=== PATIENT | male | born 1985 | race Caucasian/White ===

== ENCOUNTER 2017-06-06 21:52 | Inpatient (IN) | payer OTHER ==
[2017-06-06] MEDS ORDERED: HYDROmorphone 1 MG/ML Syringe IVPUSH ONE (22:24)
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
[2017-06-07] MEDS ORDERED: HYDROmorphone 0.5 MG/0.5 ML Syringe IVPUSH PRN (00:35)
[2017-06-07] MEDS: Acetaminophen/HYDROcodone 325-5 MG Tab PO PRN ×4 (00:46→13:47)
[2017-06-07] MEDS: Sodium Chloride 0.9% 1,000 ML IV SCH ×3 (00:46→14:43)
[2017-06-07] MEDS: Carvedilol 12.5 MG Tab PO SCH ×2 (00:47→09:20)
[2017-06-07] MEDS: lamoTRIgine 100 MG Tab PO SCH ×3 (00:47→20:42)
[2017-06-07] MEDS ORDERED: ceFAZolin 2 GM in Premix Bag 1 BAG IV SCH (01:00)
[2017-06-07] MEDS: HYDROmorphone 1 MG/ML Syringe IVPUSH PRN ×7 (02:28→13:14)
[2017-06-07] MEDS ORDERED: ceFAZolin 2 GM in Sodium Chloride 0.9% 50 ML IV SCH (09:00)
--- NOTE | 2017-06-07 09:09 | CR ---
Tibia Fibula Rt INDICATION: injury COMPARISON: None FINDINGS: 5 views. There is a vertical fracture of the lateral tibial plateau with only minimal d isplacement. Comminuted fracture distal tibial shaft with anterolateral angulation and mild displace ment of the distal fracture fragment. Segmental comminuted fracture of the mid and distal fibula wit h posterior displacement and lateral angulation of fracture fragments. Fixation hardware distal fibu la. No acute fracture at this site and fixation hardware appears intact. IMPRESSION: Multiple fractures tibia and fibula.
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
[2017-06-07] MEDS ORDERED: fentaNYL 100 MCG/2 ML SDV ONE (15:37)
[2017-06-07] MEDS ORDERED: Propofol 200 MG/20 ML SDV ONE ×2 (15:37→16:41)
[2017-06-07] MEDS ORDERED: Midazolam 1 MG/ML 2 ML SDV ONE (15:37)
[2017-06-07] MEDS: ceFAZolin 2 GM in Premix Bag 1 BAG IV ONE ×2 (15:51→16:43)
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
[2017-06-07] MEDS ORDERED: Midazolam 1 MG/ML 5 ML SDV ONE (16:01)
[2017-06-07] MEDS ORDERED: Povidone-Iodine 10% Soln 118.25 ML Bottle ONE (16:26)
[2017-06-07] MEDS ORDERED: Lactated Ringers 1,000 ML ONE (17:01)
[2017-06-07] MEDS ORDERED: Magnesium Hydroxide 400 MG/5 ML Susp 30 ML Cup PO PRN (18:08)
[2017-06-07] MEDS ORDERED: Bisacodyl 5 MG Tab PO PRN (18:08)
[2017-06-07] MEDS ORDERED: Aluminum Hydroxide/Magnesium Hydroxide/Simethicone Susp 30 ML Cup PO PRN (18:08)
[2017-06-07] MEDS ORDERED: Morphine 2 MG/ML Syringe IVPUSH PRN (18:08)
[2017-06-07] MEDS ORDERED: Sennosides 8.6 MG Tab PO PRN (18:08)
[2017-06-07] MEDS ORDERED: Naloxone 0.4 MG/ML SDV IVPUSH PRN (18:08)
[2017-06-07] MEDS ORDERED: diphenhydrAMINE 50 MG/ML SDV IVPUSH PRN (18:08)
[2017-06-07] MEDS ORDERED: Ondansetron 4 MG/2 ML SDV IVPUSH PRN (18:08)
[2017-06-07] MEDS ORDERED: Zolpidem 5 MG Tab PO PRN (18:08)
[2017-06-07] MEDS ORDERED: HYDROmorphone 1 MG/ML Syringe IVPUSH PRN (18:08)
[2017-06-07] MEDS ORDERED: hydrOXYzine HCl 100 MG/2 ML SDV IM PRN (18:13)
[2017-06-07] MEDS ORDERED: Lactated Ringers 1,000 ML IV SCH (18:15)
[2017-06-07] MEDS: Ketorolac 30 MG/ML SDV IVPUSH SCH (19:01)
[2017-06-07] MEDS: Aspirin 325 MG Tab.EC PO SCH (20:44)
[2017-06-07] MEDS ORDERED: Carvedilol 12.5 MG Tab PO SCH (21:00)
[2017-06-08] MEDS ORDERED: ceFAZolin 2 GM in Premix Bag 1 BAG IV SCH ×2
[2017-06-08] MEDS: Acetaminophen/HYDROcodone 325-5 MG Tab PO PRN ×2 (01:44→07:34)
[2017-06-08] MEDS: Ketorolac 30 MG/ML SDV IVPUSH SCH ×3 (02:00→18:09)
[2017-06-08] MEDS: Carvedilol 12.5 MG Tab PO SCH ×2 (07:39→17:11)
[2017-06-08] MEDS: lamoTRIgine 100 MG Tab PO SCH ×3 (07:39→22:25)
[2017-06-08] MEDS: ceFAZolin 2 GM in Sodium Chloride 0.9% 50 ML IV SCH ×2 (07:48→15:50)
[2017-06-08] MEDS ORDERED: ceFAZolin 2 GM in Sodium Chloride 0.9% 50 ML IV SCH (08:00)
[2017-06-08] MEDS: Docusate Sodium 100 MG Cap PO PRN ×2 (09:09→22:25)
[2017-06-08] MEDS: Aspirin 325 MG Tab.EC PO SCH ×2 (09:09→22:25)
[2017-06-08] MEDS: traMADol 50 MG Tab PO PRN ×2 (09:09→17:11)
[2017-06-08] MEDS: Sodium Chloride 0.9% 10 ML Syringe FLUSH SCH (09:10)
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
[2017-06-08] MEDS: Acetaminophen/oxyCODONE 325-10 MG Tab PO PRN ×3 (12:00→20:15)
[2017-06-09] MEDS: Acetaminophen/oxyCODONE 325-10 MG Tab PO PRN ×3 (00:21→13:41)
[2017-06-09] MEDS: Ketorolac 30 MG/ML SDV IVPUSH SCH ×2 (03:00→10:20)
[2017-06-09] MEDS: Aspirin 325 MG Tab.EC PO SCH (08:50)
[2017-06-09] MEDS: Carvedilol 12.5 MG Tab PO SCH (08:50)
[2017-06-09] MEDS: lamoTRIgine 100 MG Tab PO SCH (08:51)
[2017-06-09] MEDS: Sodium Chloride 0.9% 10 ML Syringe FLUSH SCH (10:20)
[2017-06-09 11:39] VITALS: BP 116/58
--- NOTE | 2017-06-09 12:19 | PCM.PN ---
- General Info Date of Service: 06/08/17 Functional Status: Reports: Pain Controlled, Tolerating Diet, Ambulating, Urinating - Patient Data Vitals - Most Recent: Last Vital Signs Temp 36.7 C 06/09/17 11:36 Pulse 67 06/09/17 11:36 Resp 16 06/09/17 11:36 BP 116/58 L 06/09/17 11:36 Pulse Ox 95 06/09/17 11:36 Weight - Most Recent: 281 lb 4.816 oz I&O - Last 24 Hours: Intake & Output 06/08/17 06/09/17 06/09/17 22:59 06:59 14:59 Intake Total 1050 600 Output Total 600 Balance 450 600 Lab Results Last 24 Hours: Laboratory Results - last 24 hr 06/09/17 06/09/17 Range/Units 05:00 05:00 WBC 7.0 (4.5-11.0) K/uL RBC 4.09 L (4.30-5.90) M/uL Hgb 11.7 L (12.0-15.0) g/dL Hct 34.9 L (40.0-54.0) % MCV 85 (80-98) fL MCH 29 (27-31) pg MCHC 34 (32-36) % Plt Count 213 (150-400) K/uL Neut % (Auto) 58 (36-66) % Lymph % (Auto) 26 (24-44) % [place] % (Auto) 13 H (2-6) % Eos % (Auto) 3 (2-4) % Baso % (Auto) 1 (0-1) % Sodium 139 L (140-148) mmol/L Potassium 3.9 (3.6-5.2) mmol/L Chloride 105 (100-108) mmol/L Carbon Dioxide 30 (21-32) mmol/L Anion Gap 7.9 (5.0-14.0) mmol/L BUN 8 (7-18) mg/dL Creatinine 1.0 (0.8-1.3) mg/dL Est Cr Clr Drug Dosing 124.40 mL/min Estimated GFR (MDRD) > 60 (>60) Glucose 111 H (74-106) mg/dL Calcium 8.3 L (8.5-10.1) mg/dL Total Bilirubin 0.3 (0.2-1.0) mg/dL AST 35 (15-37) U/L ALT 27 (12-78) U/L Alkaline Phosphatase 68 (46-116) U/L Total Protein 5.9 L (6.4-8.2) g/dL Albumin 2.8 L (3.4-5.0) g/dL Globulin 3.1 (2.3-3.5) g/dL Albumin/Globulin Ratio 0.9 L (1.2-2.2) Med Orders - Current: Current Medications Al Hydroxide/Mg Hydroxide (Mag-Al Plus) 30 ml PO Q4H PRN PRN Reason: Constipation Aspirin (Ecotrin) 325 mg PO BID [facility] Last Admin: 06/09/17 08:50 Dose: 325 mg Bisacodyl (Dulcolax) 10 mg PO DAILY PRN PRN Reason: Constipation [facility] Last Admin: 06/09/17 08:50 Dose: 12.5 mg Diazepam (Valium) 5 mg IVPUSH Q6H PRN PRN Reason: Spasms Last Admin: 06/08/17 13:50 Dose: 5 mg Diphenhydramine HCl (Benadryl) 25 mg IVPUSH Q4H PRN PRN Reason: Itching Docusate Sodium (Colace) 100 mg PO BID PRN PRN Reason: Constipation Last Admin: 06/08/17 22:25 Dose: 100 mg Hydromorphone HCl (Dilaudid) 1 mg IVPUSH Q2H PRN PRN Reason: Pain Hydroxyzine HCl (Vistaril) 100 mg IM Q6H PRN PRN Reason: Pain Last Admin: 06/07/17 20:34 Dose: 100 mg Ketorolac Tromethamine (Toradol) 30 mg IVPUSH Q8H [facility] Stop: 06/12/17 18:01 Last Admin: 06/09/17 10:20 Dose: 30 mg Lamotrigine (Lamotrigine) 100 mg PO BID [facility] Last Admin: 06/09/17 08:51 Dose: 100 mg Magnesium Hydroxide (Milk Of Magnesia) 30 ml PO BID PRN PRN Reason: Constipation Morphine Sulfate (Morphine) 2 mg IVPUSH Q2H PRN PRN Reason: Pain Ondansetron HCl (Zofran) 8 mg IVPUSH Q4H PRN PRN Reason: Nausea/Vomiting Oxycodone/Acetaminophen (Percocet 325-10 Mg) 1 tab PO Q4H PRN PRN Reason: Pain Last Admin: 06/09/17 04:39 Dose: 1 tab Senna (Senna) 8.6 mg PO BID PRN PRN Reason: Constipation Sodium Chloride (Saline Flush) 10 ml FLUSH DAILY [facility] Last Admin: 06/09/17 10:20 Dose: 10 ml Tramadol HCl (Ultram) 100 mg PO Q6H PRN PRN Reason: Pain Last Admin: 06/08/17 17:11 Dose: 100 mg Zolpidem Tartrate (Ambien) 5 mg PO BEDTIME PRN PRN Reason: Sleep Discontinued Medications Hydrocodone Bitart/Acetaminophen ([place] 325-5 Mg) 1 - 2 tab PO Q4H PRN PRN Reason: Pain Last Admin: 06/08/17 07:34 Dose: 2 tab Carvedilol (Coreg) 12.5 mg PO BID [facility] Last Admin: 06/07/17 09:20 Dose: 12.5 mg Carvedilol (Coreg) 12.5 mg PO BID [facility] Last Admin: 06/07/17 20:41 Dose: 12.5 mg Fentanyl (Sublimaze) Confirm Administered Dose 100 mcg .ROUTE .STK-MED ONE Stop: 06/07/17 15:38 Hydromorphone HCl (Dilaudid) 1 mg IVPUSH ONETIME ONE Stop: 06/06/17 22:25 Last Admin: 06/06/17 22:27 Dose: 1 mg Hydromorphone HCl (Dilaudid) 0.5 mg IVPUSH Q2H PRN PRN Reason: Pain Last Admin: 06/07/17 00:46 Dose: 0.5 mg Hydromorphone HCl (Dilaudid) 1 mg IVPUSH Q2H PRN PRN Reason: Pain Last Admin: 06/07/17 09:16 Dose: 1 mg Hydromorphone HCl (Dilaudid) 1 mg IVPUSH Q1H PRN PRN Reason: Pain Last Admin: 06/07/17 13:14 Dose: 1 mg Cefazolin Sodium/Dextrose 2 gm (/ Premix) 50 mls @ 100 mls/hr IV Q8H [facility] Last Admin: 06/07/17 01:33 Dose: 100 mls/hr Sodium Chloride (Normal Saline) 1,000 mls @ 150 mls/hr IV ASDIRECTED [facility] Last Admin: 06/07/17 14:43 Dose: 150 mls/hr Cefazolin Sodium 2 gm/ Sodium (Chloride) 50 mls @ 100 mls/hr IV Q8H [facility] Cefazolin Sodium/Dextrose 2 gm (/ Premix) 50 mls @ 100 mls/hr IV ONETIME ONE Stop: 06/07/17 11:29 Last Admin: 06/07/17 16:43 Dose: 100 mls/hr Lactated Ringer's (Ringers, Lactated) Confirm Administered Dose 1,000 mls @ as directed .ROUTE .STK-MED ONE Stop: 06/07/17 17:02 Lactated Ringer's (Ringers, Lactated) 1,000 mls @ 100 mls/hr IV ASDIRECTED [facility] Last Admin: 06/08/17 04:11 Dose: 100 mls/hr Cefazolin Sodium/Dextrose 2 gm (/ Premix) 50 mls @ 100 mls/hr IV Q8H [facility] Stop: 06/08/17 16:29 Last Admin: 06/08/17 00:36 Dose: 100 mls/hr Cefazolin Sodium 2 gm/ Sodium (Chloride) 50 mls @ 100 mls/hr IV Q8H [facility] Stop: 06/08/17 16:29 Cefazolin Sodium 2 gm/ Sodium (Chloride) 50 mls @ 100 mls/hr IV Q8H [facility] Stop: 06/08/17 16:29 Last Admin: 06/08/17 15:50 Dose: 100 mls/hr Lamotrigine (Lamotrigine) 100 mg PO BID [facility] Last Admin: 06/07/17 09:20 Dose: 100 mg Midazolam HCl (Versed 1 Mg/Ml) Confirm Administered Dose 2 mg .ROUTE .STK-MED ONE Stop: 06/07/17 15:38 Midazolam HCl (Versed 1 Mg/Ml) Confirm Administered Dose 5 mg .ROUTE .STK-MED ONE Stop: 06/07/17 16:02 Naloxone HCl (Narcan) 0.1 mg IVPUSH ONETIME PRN PRN Reason: Oversedation Stop: 06/07/17 18:09 Povidone Iodine (Betadine 10% Soln) Confirm Administered Dose 1 ml .ROUTE .STK- MED ONE Stop: 06/07/17 16:27 Last Admin: 06/07/17 16:32 Dose: 1 ml Propofol (Diprivan 20 Ml) Confirm Administered Dose 200 mg .ROUTE .STK-MED ONE Stop: 06/07/17 15:38 Propofol (Diprivan 20 Ml) Confirm Administered Dose 200 mg .ROUTE .STK-MED ONE Stop: 06/07/17 16:42 - Exam General: Alert, Oriented Extremities: Normal Inspection, Normal Capillary Refill, Pedal Edema, Leg Pain, Limited Range of Motion Skin: Warm, Dry, Intact Wound/Incisions: Healing Well, Dressing Dry and Intact Neurological: No New Focal Deficit Psy/Mental Status: Alert, Normal Affect - Problem List Review Problem List Initiated/Reviewed/Updated: Yes - My Orders Last 24 Hours: My Active Orders 06/09/17 08:53 Ready for Discharge [RC] PER UNIT ROUTINE 06/10/17 05:15 CBC WITH AUTO DIFF [HEME] DAILY COMPREHENSIVE METABOLIC PN,CMP [CHEM] DAILY 06/11/17 05:15 CBC WITH AUTO DIFF [HEME] DAILY COMPREHENSIVE METABOLIC PN,CMP [CHEM] DAILY - Plan Plan:: At this time the patient is doing well. He is wearing his splint and keeping his leg elevated. He will continue to wear the brace. I did advise him that he can go home tomorrow. We'll continue with elevation of that leg.
--- NOTE | 2017-06-09 12:22 | PCM.DCSUM1 ---
Discharge Summary - Hospital Course Free Text/Narrative:: Luis F is a pleasant 32-year-old male who is status post a PO2 of tibial nailing. He is doing very well. Patient continues to ambulate with walker. He has increased strength. His pain is under control with oral pain medication at this time. He is ambulating without any difficulties. - Discharge Data Discharge Date: 06/09/17 Discharge Disposition: Home, Self-Care 01 Condition: Stable - Patient Summary/Data Consults: Consultations 06/07/17 18:08 OT Evaluation and Treatment [CONS] Routine Please Evaluate and Treat. OT Reason for Consult: Strengthening This query below is only for informational purposes and is not editable. Admission Diagnosis/Problem: Fracture of tibia AND fibula PT Evaluation and Treatment [CONS] Routine Please Evaluate and Treat. PT Reason for Consult: Strengthening This query below is only for informational purposes and is not editable. Admission Diagnosis/Problem: Fracture of tibia AND fibula Recommended Follow-up Testing/Procedures: Patient is to follow-up with Isabela Royal [facility] in 2 weeks - Patient Instructions Diet: Usual Diet as Tolerated Activity: Apply Ice, As Tolerated, Elevate Extremity Activity, Other: Nonweightbearing on the right leg Driving: Do Not Drive Showering/Bathing: May Shower Wound/Incision Care: Keep Operative Site/Wound Site Clean and Dry, Change Dressing Daily Notify Provider of: Fever, Increased Pain, Swelling and Redness, Drainage - Discharge Plan Prescriptions/Med Rec: Acetaminophen/oxyCODONE [Percocet 325-10 MG] 1 tab PO Q4H PRN #90 tablet PRN Reason: Pain Aspirin [Ecotrin] 325 mg PO BID #60 tab.ec Docusate Sodium [Colace] 100 mg PO DAILY PRN #20 cap PRN Reason: Constipation Home Medications: Home Meds Acetaminophen [Tylenol] 650 mg PO PRN 01/15/14 [History] Ibuprofen [Ibuprofen Ib] 400 mg PO PRN 01/15/14 [History] Carvedilol [Coreg] 12.5 mg PO BID 06/06/17 [History] lamoTRIgine [Lamotrigine] 100 mg PO BID 06/06/17 [History] Acetaminophen/oxyCODONE [Percocet 325-10 MG] 1 tab PO Q4H PRN #90 tablet [Rx] Aspirin [Ecotrin] 325 mg PO BID #60 tab.ec 06/08/17 [Rx] Docusate Sodium [Colace] 100 mg PO DAILY PRN #20 cap 06/08/17 [Rx] Forms: ED Department Discharge Referrals: PCP,None [Primary Care Provider] - Isabela Royal, [facility] [Nurse Practitioner] - (2 week follow up) - Discharge Summary/Plan Comment DC Time >30 min.: Yes Discharge Summary/Plan Comment: Patient will be discharged home today. He'll follow-up with me in 2 weeks we will do staple removal. I did prescribe Percocet and Valium for the patient to take at home. He will notify me if he has any other issues in the meantime. - General Info Date of Service: 06/09/17 Functional Status: Reports: Pain Controlled, Tolerating Diet, Ambulating, Urinating - Review of Systems General: Reports: No Symptoms - Patient Data Vitals - Most Recent: Last Vital Signs Temp 36.7 C 06/09/17 11:36 Pulse 67 06/09/17 11:36 Resp 16 06/09/17 11:36 BP 116/58 L 06/09/17 11:36 Pulse Ox 95 06/09/17 11:36 Weight - Most Recent: 281 lb 4.816 oz I&O - Last 24 hours: Intake & Output 06/08/17 06/09/17 06/09/17 22:59 06:59 14:59 Intake Total 1050 600 Output Total 600 Balance 450 600 Lab Results - Last 24 hrs: Laboratory Results - last 24 hr 06/09/17 06/09/17 Range/Units 05:00 05:00 WBC 7.0 (4.5-11.0) K/uL RBC 4.09 L (4.30-5.90) M/uL Hgb 11.7 L (12.0-15.0) g/dL Hct 34.9 L (40.0-54.0) % MCV 85 (80-98) fL MCH 29 (27-31) pg MCHC 34 (32-36) % Plt Count 213 (150-400) K/uL Neut % (Auto) 58 (36-66) % Lymph % (Auto) 26 (24-44) % [place] % (Auto) 13 H (2-6) % Eos % (Auto) 3 (2-4) % Baso % (Auto) 1 (0-1) % Sodium 139 L (140-148) mmol/L Potassium 3.9 (3.6-5.2) mmol/L Chloride 105 (100-108) mmol/L Carbon Dioxide 30 (21-32) mmol/L Anion Gap 7.9 (5.0-14.0) mmol/L BUN 8 (7-18) mg/dL Creatinine 1.0 (0.8-1.3) mg/dL Est Cr Clr Drug Dosing 124.40 mL/min Estimated GFR (MDRD) > 60 (>60) Glucose 111 H (74-106) mg/dL Calcium 8.3 L (8.5-10.1) mg/dL Total Bilirubin 0.3 (0.2-1.0) mg/dL AST 35 (15-37) U/L ALT 27 (12-78) U/L Alkaline Phosphatase 68 (46-116) U/L Total Protein 5.9 L (6.4-8.2) g/dL Albumin 2.8 L (3.4-5.0) g/dL Globulin 3.1 (2.3-3.5) g/dL Albumin/Globulin Ratio 0.9 L (1.2-2.2) Med Orders - Current: Current Medications Al Hydroxide/Mg Hydroxide (Mag-Al Plus) 30 ml PO Q4H PRN PRN Reason: Constipation Aspirin (Ecotrin) 325 mg PO BID [facility] Last Admin: 06/09/17 08:50 Dose: 325 mg Bisacodyl (Dulcolax) 10 mg PO DAILY PRN PRN Reason: Constipation Carvedilol (Coreg) 12.5 mg PO BIDKYALS [facility] Last Admin: 06/09/17 08:50 Dose: 12.5 mg Diazepam (Valium) 5 mg IVPUSH Q6H PRN PRN Reason: Spasms Last Admin: 06/08/17 13:50 Dose: 5 mg Diphenhydramine HCl (Benadryl) 25 mg IVPUSH Q4H PRN PRN Reason: Itching Docusate Sodium (Colace) 100 mg PO BID PRN PRN Reason: Constipation Last Admin: 06/08/17 22:25 Dose: 100 mg Hydromorphone HCl (Dilaudid) 1 mg IVPUSH Q2H PRN PRN Reason: Pain Hydroxyzine HCl (Vistaril) 100 mg IM Q6H PRN PRN Reason: Pain Last Admin: 06/07/17 20:34 Dose: 100 mg Ketorolac Tromethamine (Toradol) 30 mg IVPUSH Q8H [facility] Stop: 06/12/17 18:01 Last Admin: 06/09/17 10:20 Dose: 30 mg Lamotrigine (Lamotrigine) 100 mg PO BID [facility] Last Admin: 06/09/17 08:51 Dose: 100 mg Magnesium Hydroxide (Milk Of Magnesia) 30 ml PO BID PRN PRN Reason: Constipation Morphine Sulfate (Morphine) 2 mg IVPUSH Q2H PRN PRN Reason: Pain Ondansetron HCl (Zofran) 8 mg IVPUSH Q4H PRN PRN Reason: Nausea/Vomiting Oxycodone/Acetaminophen (Percocet 325-10 Mg) 1 tab PO Q4H PRN PRN Reason: Pain Last Admin: 06/09/17 04:39 Dose: 1 tab Senna (Senna) 8.6 mg PO BID PRN PRN Reason: Constipation Sodium Chloride (Saline Flush) 10 ml FLUSH DAILY [facility] Last Admin: 06/09/17 10:20 Dose: 10 ml Tramadol HCl (Ultram) 100 mg PO Q6H PRN PRN Reason: Pain Last Admin: 06/08/17 17:11 Dose: 100 mg Zolpidem Tartrate (Ambien) 5 mg PO BEDTIME PRN PRN Reason: Sleep Discontinued Medications Hydrocodone Bitart/Acetaminophen ([place] 325-5 Mg) 1 - 2 tab PO Q4H PRN PRN Reason: Pain Last Admin: 06/08/17 07:34 Dose: 2 tab Carvedilol (Coreg) 12.5 mg PO BID [facility] Last Admin: 06/07/17 09:20 Dose: 12.5 mg Carvedilol (Coreg) 12.5 mg PO BID [facility] Last Admin: 06/07/17 20:41 Dose: 12.5 mg Fentanyl (Sublimaze) Confirm Administered Dose 100 mcg .ROUTE .STK-MED ONE Stop: 06/07/17 15:38 Hydromorphone HCl (Dilaudid) 1 mg IVPUSH ONETIME ONE Stop: 06/06/17 22:25 Last Admin: 06/06/17 22:27 Dose: 1 mg Hydromorphone HCl (Dilaudid) 0.5 mg IVPUSH Q2H PRN PRN Reason: Pain Last Admin: 06/07/17 00:46 Dose: 0.5 mg Hydromorphone HCl (Dilaudid) 1 mg IVPUSH Q2H PRN PRN Reason: Pain Last Admin: 06/07/17 09:16 Dose: 1 mg Hydromorphone HCl (Dilaudid) 1 mg IVPUSH Q1H PRN PRN Reason: Pain Last Admin: 06/07/17 13:14 Dose: 1 mg Cefazolin Sodium/Dextrose 2 gm (/ Premix) 50 mls @ 100 mls/hr IV Q8H [facility] Last Admin: 06/07/17 01:33 Dose: 100 mls/hr Sodium Chloride (Normal Saline) 1,000 mls @ 150 mls/hr IV ASDIRECTED [facility] Last Admin: 06/07/17 14:43 Dose: 150 mls/hr Cefazolin Sodium 2 gm/ Sodium (Chloride) 50 mls @ 100 mls/hr IV Q8H [facility] Cefazolin Sodium/Dextrose 2 gm (/ Premix) 50 mls @ 100 mls/hr IV ONETIME ONE Stop: 06/07/17 11:29 Last Admin: 06/07/17 16:43 Dose: 100 mls/hr Lactated Ringer's (Ringers, Lactated) Confirm Administered Dose 1,000 mls @ as directed .ROUTE .STK-MED ONE Stop: 06/07/17 17:02 Lactated Ringer's (Ringers, Lactated) 1,000 mls @ 100 mls/hr IV ASDIRECTED [facility] Last Admin: 06/08/17 04:11 Dose: 100 mls/hr Cefazolin Sodium/Dextrose 2 gm (/ Premix) 50 mls @ 100 mls/hr IV Q8H [facility] Stop: 06/08/17 16:29 Last Admin: 06/08/17 00:36 Dose: 100 mls/hr Cefazolin Sodium 2 gm/ Sodium (Chloride) 50 mls @ 100 mls/hr IV Q8H [facility] Stop: 06/08/17 16:29 Cefazolin Sodium 2 gm/ Sodium (Chloride) 50 mls @ 100 mls/hr IV Q8H [facility] Stop: 06/08/17 16:29 Last Admin: 06/08/17 15:50 Dose: 100 mls/hr Lamotrigine (Lamotrigine) 100 mg PO BID [facility] Last Admin: 06/07/17 09:20 Dose: 100 mg Midazolam HCl (Versed 1 Mg/Ml) Confirm Administered Dose 2 mg .ROUTE .STK-MED ONE Stop: 06/07/17 15:38 Midazolam HCl (Versed 1 Mg/Ml) Confirm Administered Dose 5 mg .ROUTE .STK-MED ONE Stop: 06/07/17 16:02 Naloxone HCl (Narcan) 0.1 mg IVPUSH ONETIME PRN PRN Reason: Oversedation Stop: 06/07/17 18:09 Povidone Iodine (Betadine 10% Soln) Confirm Administered Dose 1 ml .ROUTE .STK- MED ONE Stop: 06/07/17 16:27 Last Admin: 06/07/17 16:32 Dose: 1 ml Propofol (Diprivan 20 Ml) Confirm Administered Dose 200 mg .ROUTE .STK-MED ONE Stop: 06/07/17 15:38 Propofol (Diprivan 20 Ml) Confirm Administered Dose 200 mg .ROUTE .STK-MED ONE Stop: 06/07/17 16:42 - Exam General: Reports: Alert, Oriented Extremities: Normal Inspection, Normal Capillary Refill, Pedal Edema, Leg Pain, Limited Range of Motion Skin: Reports: Warm, Dry, Intact Wound/Incisions: Reports: Healing Well, Dressing Dry and Intact, No Drainage Neurological: Reports: No New Focal Deficit Psy/Mental Status: Reports: Alert, Normal Affect *Q Meaningful Use (DIS) - VTE *Q VTE Criteria *Q: - Stroke *Q Stroke Criteria *Q: - AMI *Q AMI Criteria *Q:
== END 2017-06-09 15:06 | disposition home or self-care (01) | DRG 494 ==
LOC: JP.ED 21:52 → JP.MS 22:30
PROVIDERS: ADMIT Orthopaedic Surgery; ATTEND Orthopaedic Surgery
PROC: 0QHG06Z Insertion of Intramedullary Internal Fixation Device into Right Tibia, Open Approach (ICD-10-PCS; principal; 2017-06-07)
DX: S82.421A Displaced transverse fracture of shaft of right fibula, initial encounter for closed fracture (principal); S82.301A Unspecified fracture of lower end of right tibia, initial encounter for closed fracture; I10 Essential (primary) hypertension; F17.210 Nicotine dependence, cigarettes, uncomplicated
CPT/HCPCS: 36415; 73590-26-RT; 73590-RT; 76001; 80053; 85025; 86850; 86900; 86901; 93005; 93010; 94762; 96374; 97116-GP; 97161-GP; 97165-GO; 99284; 99284-25; A9270-GY; C1713; C1776; J0690; J1170; J1885; J2250; J2704; J3010; J3360; J3410; J7040; J7050; J7120

== ENCOUNTER 2018-01-13 02:43 | Emergency (ER) | payer OTHER ==
--- NOTE | 2018-01-13 03:34 | EDM.PDOCBH ---
ED HPI GENERAL MEDICAL PROBLEM - General Chief Complaint: Behavioral/Psych Stated Complaint: EVAL VIA LAW Time Seen by Provider: 01/13/18 03:20 Source of Information: Reports: Patient, Police History Limitations: Reports: No Limitations - History of Present Illness INITIAL COMMENTS - FREE TEXT/NARRATIVE: 32 yo male brought in by police after he attempted to shoot himself with a pistol and missed. Has been taking all of his prescribed meds. Admits to 5 beers tonight, but did not take any pills with intent of self harm. Has not been ill lately. Is a . Onset: Today Onset Date: 01/13/18 Onset Time: 02:00 Duration: Minutes:, Constant Severity: Severe Improves with: Reports: None Worsens with: Reports: None Context: Reports: Other (Hx of De) Associated Symptoms: Reports: No Other Symptoms Treatments [employer]CHNICIAN: Reports: Other (see below) (none) left ear pain Pain Score (Numeric/FACES): 2 - Related Data Allergies Allergy/AdvReac Type Severity Reaction Status Date / Time bee stings Allergy Hives Uncoded 01/13/18 03:11 Home Meds: Home Meds Acetaminophen [Tylenol] 650 mg PO Q6H PRN 01/15/14 [History] Ibuprofen [Ibuprofen Ib] 400 mg PO BID PRN 01/15/14 [History] Carvedilol [Coreg] 12.5 mg PO BID 06/06/17 [History] lamoTRIgine [Lamotrigine] 100 mg PO BID 06/06/17 [History] Past Medical History Cardiovascular History: Reports: Hypertension Musculoskeletal History: Reports: Fracture Neurological History: Reports: Concussion Psychiatric History: Reports: PTSD - Past Surgical History HEENT Surgical History: Reports: Myringotomy w Tube(s), Naso-Sinus Surgery Musculoskeletal Surgical History: Reports: Other (See Below) Other Musculoskeletal Surgeries/Procedures:: r ankle surgery Social & Family History - Family History Family Medical History: Noncontributory - Tobacco Use Smoking Status *Q: Unknown Ever Smoked Years of Tobacco use: 17 Packs/Tins Daily: 0.5 Used Tobacco, but Quit: No Second Hand Smoke Exposure: Yes - Caffeine Use Caffeine Use: Reports: None - Alcohol Use Days Per Week of Alcohol Use: 4 Number of Drinks Per Day: 3 Total Drinks Per Week: 12 - Recreational Drug Use Recreational Drug Use: No ED ROS GENERAL - Review of Systems Review Of Systems: See Below Constitutional: Reports: No Symptoms HEENT: Reports: No Symptoms Respiratory: Reports: No Symptoms Cardiovascular: Reports: No Symptoms GI/Abdominal: Reports: No Symptoms : Reports: No Symptoms Musculoskeletal: Reports: No Symptoms Skin: Reports: No Symptoms Neurological: Reports: No Symptoms Psychiatric: Reports: Depression, Suicidal Ideation ED EXAM, BEHAVIORAL HEALTH - Physical Exam Exam: See Below Exam Limited By: No Limitations General Appearance: Alert, WD/WN, No Apparent Distress Eye Exam: Bilateral Eye: Normal Inspection Ears: Normal External Exam, Normal Canal, Hearing Grossly Normal Nose: Normal Inspection, Normal Mucosa, No Blood Throat/Mouth: Normal Inspection, Normal Lips, Normal Oropharynx, Normal Voice, No Airway Compromise Head: Atraumatic, Normocephalic Neck: Normal Inspection, Supple, Non-Tender Respiratory/Chest: No Respiratory Distress, Lungs Clear, Normal Breath Sounds, No Accessory Muscle Use Cardiovascular: Regular Rate, Rhythm, No Edema GI/Abdominal: Normal Bowel Sounds, Soft, Non-Tender Back Exam: Normal Inspection. No: CVA Tenderness (R), CVA Tenderness (L) Extremities: Normal Inspection, Normal Range of Motion, Non-Tender, No Pedal Edema Neurological: Alert, Normal Mood/Affect, CN II-XII Intact, Normal Cognition Psychiatric: Alert, Suicidal Thoughts, Other (hypervigilant) Skin Exam: Warm, Dry, Intact, Normal color, No rash COURSE, BEHAVIORAL HEALTH COMP - Course Vital Signs: Last Vital Signs Temp 35.8 C 01/13/18 05:13 Pulse 79 01/13/18 05:13 Resp 16 01/13/18 05:13 BP 118/71 01/13/18 05:13 Pulse Ox 94 L 01/13/18 05:13 Orders, Labs, Meds: Laboratory Tests 01/13/18 01/13/18 01/13/18 Range/Units 02:46 02:46 02:46 WBC 7.3 (4.5-11.0) K/uL RBC 5.95 H (4.30-5.90) M/uL Hgb 17.1 H D (12.0-15.0) g/dL Hct 48.8 (40.0-54.0) % MCV 82 (80-98) fL MCH 29 (27-31) pg MCHC 35 (32-36) % Plt Count 289 (150-400) K/uL Sodium 142 (140-148) mmol/L Potassium 4.1 (3.6-5.2) mmol/L Chloride 102 (100-108) mmol/L Carbon Dioxide 27 (21-32) mmol/L Anion Gap 12.9 (5.0-14.0) mmol/L BUN 12 (7-18) mg/dL Creatinine 1.1 (0.8-1.3) mg/dL Est Cr Clr Drug Dosing 113.09 mL/min Estimated GFR (MDRD) > 60 (>60) Glucose 122 H (74-106) mg/dL Calcium 9.0 (8.5-10.1) mg/dL TSH, Ultra Sensitive (0.358-3.740) uIU/mL Salicylates (2.0-20.0) mg/dL Urine Opiates Screen Negative (NEGATIVE) Ur Oxycodone Screen Negative (NEGATIVE) Urine Methadone Screen Negative (NEGATIVE) Ur Propoxyphene Screen Negative (NEGATIVE) Acetaminophen (10.0-30.0) ug/mL Ur Barbiturates Screen Negative (NEGATIVE) Ur Tricyclics Screen Negative (NEGATIVE) Ur Phencyclidine Scrn Negative (NEGATIVE) Ur Amphetamine Screen Negative (NEGATIVE) U Methamphetamines Scrn Negative (NEGATIVE) Urine MDMA Screen Negative (NEGATIVE) U Benzodiazepines Scrn Negative (NEGATIVE) U Cocaine Metab Screen Negative (NEGATIVE) U Marijuana (THC) Screen Negative (NEGATIVE) Ethyl Alcohol mg/dL 01/13/18 01/13/18 01/13/18 Range/Units 02:46 02:47 02:47 WBC (4.5-11.0) K/uL RBC (4.30-5.90) M/uL Hgb (12.0-15.0) g/dL Hct (40.0-54.0) % MCV (80-98) fL MCH (27-31) pg MCHC (32-36) % Plt Count (150-400) K/uL Sodium (140-148) mmol/L Potassium (3.6-5.2) mmol/L Chloride (100-108) mmol/L Carbon Dioxide (21-32) mmol/L Anion Gap (5.0-14.0) mmol/L BUN (7-18) mg/dL Creatinine (0.8-1.3) mg/dL Est Cr Clr Drug Dosing mL/min Estimated GFR (MDRD) (>60) Glucose (74-106) mg/dL Calcium (8.5-10.1) mg/dL TSH, Ultra Sensitive 2.738 (0.358-3.740) uIU/mL Salicylates 3.2 (2.0-20.0) mg/dL Urine Opiates Screen (NEGATIVE) Ur Oxycodone Screen (NEGATIVE) Urine Methadone Screen (NEGATIVE) Ur Propoxyphene Screen (NEGATIVE) Acetaminophen 0.0 L (10.0-30.0) ug/mL Ur Barbiturates Screen (NEGATIVE) Ur Tricyclics Screen (NEGATIVE) Ur Phencyclidine Scrn (NEGATIVE) Ur Amphetamine Screen (NEGATIVE) U Methamphetamines Scrn (NEGATIVE) Urine MDMA Screen (NEGATIVE) U Benzodiazepines Scrn (NEGATIVE) U Cocaine Metab Screen (NEGATIVE) U Marijuana (THC) Screen (NEGATIVE) Ethyl Alcohol 257 mg/dL Medical Clearance: 01/13/18 06:55 Cleared medically, placed on a 72 hr hold, accepted at [address] Departure - Departure Time of Disposition: 07:15 Disposition: DC/Tfer to Psych Hosp/[facility] Condition: Fair Clinical Impression: Depression with suicidal ideation Alcohol intoxication Qualifiers: Complication of substance-induced condition: with unspecified complication Qualified Code(s): F10.929 - Alcohol use, unspecified with intoxication, unspecified Clinical Impression: (Ruled Out): Depressive disorder - Discharge Information Referrals: PCP,None [Primary Care Provider] - Forms: ED Department Discharge
[2018-01-13 05:13] VITALS: BP 118/71
== END 2018-01-13 08:12 ==
LOC: JP.ED 02:43
DX: F32.9 Major depressive disorder, single episode, unspecified (principal); R45.851 Suicidal ideations; F10.929 Alcohol use, unspecified with intoxication, unspecified; Y90.8 Blood alcohol level of 240 mg/100 ml or more; I10 Essential (primary) hypertension; Z91.030 Bee allergy status; Z79.899 Other long term (current) drug therapy
CPT/HCPCS: 36415; 80048; 80305; 84443; 85027; 99285; G0480; 99284